=== PATIENT | female | born 1980 | race Hispanic/Latino ===

== ENCOUNTER 2022-02-06 19:43 | Emergency (ER) | payer MEDICAID, OTHER ==
[~2022-02-06] VITALS: Ht 165.1 cm; Wt 103.0 kg
[2022-02-06] MEDS ORDERED: OXYMETAZOLINE HCL SPRAY 15 ML BOTTLE EN SCH (21:00)
[2022-02-06] MEDS ORDERED: OXYMETAZOLINE HCL SPRAY 15 ML BOTTLE EN ONE (21:15)
[2022-02-06 23:20] VITALS: BP 155/95
== END 2022-02-06 23:27 | disposition home or self-care (01) ==
LOC: EDH 19:43
DX: R04.0 Epistaxis (principal); I10 Essential (primary) hypertension; Z90.89 Acquired absence of other organs; Z85.850 Personal history of malignant neoplasm of thyroid